=== PATIENT | female | born 1950 | race Caucasian/White ===

== ENCOUNTER 2025-01-29 11:13 | Outpatient (CLI) | payer MEDICARE, SELFPAY ==
--- NOTE | 2025-01-29 11:45 | ECG_ITS ---
Test Date: 2025-01-29 11:54:28 Measurements Intervals [place] Rate: 65 P: -14 WA: 151 QRS: 6 QRSD: 94 T: -2 QT: 397 QTc: 415 Interpretive Statements SINUS RHYTHM WITH SINUS ARRHYTHMIA MINIMAL Q WAVES- HIGH LATERAL LEADS NONSPECIFIC ST & T-WAVE ABNORMALITY- ANTEROLAT/INF LEADS BORDERLINE ECG No previous ECG available for comparison Electronically Signed On 01-29-2025 11:59:33 CDT by Marcus Jaramillo D.O.
--- OUTSIDE RECORDS SUMMARY | 2025-01-29 11:47 | XMS_ITS | Clinical Summary ---
Author Organization [facility] Address [address] [place] [address] Care Team Providers Care Manager Regulatory Name Role Phone Unavailable Primary Care Provider Unavailabl e Source Comments [facility],non-owned Affiliates and Associated Physician Practices is amultiple site organization consisting of ambulatory clinics and hospital sitesin [place], [place], [place] and [place]. This disclosure is being madepursuant to the Care Everywhere program and may not contain all information available regarding this patient. Last updated 18.[facility] [employer] Allergies Active Allergy Reactions Criticality Noted Date Comments Amoxicillin-Pot Clavulanate Rash Medium 08/30/19 17 Iodine Urticaria Medium 08/31/2011 Iv contrast Prednisone Other Medium 12/09/2019 makes her really on edge Medications * Be aware that medications may not be up to date on this document. Alwaysverify current medications with the patient. levothyroxine (Synthroid) 88 MCG tablet Take 1 (one) tablet by mouth once daily 07/27/2023 Active magnesium 500 MG tablet Take 1 (one) tablet by mouth at bedtime Active meloxicam (Mobic) 15 MG tablet TAKE 1 TABLET (15 MG TOTAL) BY MOUTH DAILY. 08/13/2023 Active rosuvastatin (Crestor) 10 MG tablet Take 1 (one) tablet by mouth 07/21/2023 Active sulfaSALAzine (Azulfidine) 500 MG tablet Take 2 (two) tablets by mouth once daily 06/25/2023 Active valsartan (Diovan) 320 MG tablet Take 1 (one) tablet by mouth once daily 07/03/2023 Active Active Problems No known active problems Social History Tobacco Use Types Packs/Day Years Used Date Smoking Tobacco: Never Smokeless Tobacco: Never Alcohol Use Standard Drinks/Week Comments Yes 1 (1 standard drink = 0.6 oz pur e alcohol) Comments Unknown Sex and Gender Information Value Date Recorded Sex Assigned at Not on file Legal Sex Female 9:19 AM [employer] Gender Identity Not on file Sexual Orientation Not on file Last Filed Vital Signs Vital Sign Reading Time Taken Comments Blood Pressure - - Pulse - - Temperature - - Respiratory Rate - - Oxygen Saturation - - Inhaled Oxygen Concentration - - Weight 108.9 kg (240 lb) 08/30/2023 1:58 PM CDT Height 174 cm (5' 8.5) 08/30/2023 1:58 PM CDT Body Mass Index 35.96 08/30/2023 1:58 PM CDT Plan of Treatment Health Maintenance Due Date Last Done Comments COLOGUARD (AGES 45-75) - COL ON CA SCREENING 1951 COLON MONITORING 1951 COLONOSCOPY - COLON CA SCREENING 1951 CT COLONOGRAPHY - COLON CA SCREENING 1950 Colorectal Cancer Screening 1950 FIT - COLON CA SCREENING 1951 FLEX SIG - COLON CA SCREENING 1950 MEDICARE AWV 12 MONTHS 1950 HEPATITIS C SCREENING 03/31/1969 DTAP/TDAP/TD VACCINES (1 - Tdap) 1970 PNEUMOCOCCAL VACCINE 50+ (1 of 1 - PCV) 2001 ZOSTER VACCINE (1 of 2) 2001 DEPRESSION SCREENING 04/30/2024 COVID-19 VACCINE (3 - 2024-2 6 season) 2024 06/30/2020, 06/02/2020 INFLUENZA VACCINE (#1) 2024 9, 04/07/2013, 03/25/2013 MAMMOGRAM 07/22/2025 07/23/2023, 07/17/2022 Respiratory Syncytial Virus (RSV) Vaccine Pt: or over 60 yrs (1 - 1-dose 75+ series) 2026 BONE DENSITY TESTING Completed 01/28/2020 HEPATITIS B VACCINE Aged Out No longe r eligible based on patient's age to complete this topic HIB VACCINE Aged Out No longer eligi ble based on patient's age to complete this topic HPV VACCINE Aged Out No longer eligi ble based on patient's age to complete this topic MENINGOCOCCAL (Group B) VACCINE SHARED DECISION-MAKING Aged Out No longer eligible based on patient's age to complete this topic MENINGOCOCCAL GROUPS A/C/Y/W VACCINE Aged Out No longer eligible b ased on patient's age to complete this topic Insurance MEDICARE T[place]
[2025-01-29 12:20] LABS: Hematocrit 41.2 % (37.0-47.0); Hemoglobin 13.5 g/dL (12.0-15.0); Immature Granulocyte Percent A 1.1 % (0-0.5); Lymphocytes Absolute Auto 1.90 K/mm3 (0.9-3.2); Mean Corpuscular HGB Conc 32.8 g/dl (32-36); Mean Corpuscular Hemoglobin 32.1 pg (26-34); Mean Corpuscular Volume 98.1 fl (80-100); Nucleated Red Blood Cells Absolute Auto 0.000 K/mm3 (0.0-0.012); Nucleated Red Blood Cells Perc 0.0 % (0.0-0.2); Platelet Count Result 209 k/mm3 (150-375); Red Blood Count 4.20 M/mm3 (4.2-5.4); White Blood Count 10.3 K/mm3 (4.5-10.0)
[2025-01-29 12:27] LABS: Add Urine Microscopic? YES; Appearance Urine Clear (Clear); Glucose Urine UA Negative (Negative); Leukocyte Esterase Ur Trace LEU/UL (Negative); Nitrate Urine Negative (Negative); Non Pathogenic Casts 0-2; Specific Grav Ur 1.010 (1.001-1.035)
[2025-01-29 12:44] LABS: Anion Gap 9 mmol/L (4-12); Blood Urea Nitrogen 20 mg/dL (7-17); Calcium 9.8 mg/dL (8.4-10.2); Carbon Dioxide 26 mmol/L (22-30); Chloride 101 mmol/L (98-107); Estimated Glomerular Filt Rate > 60; Glucose 188 mg/dL (65-110); Potassium 4.0 mmol/L (3.4-5.0); Sodium 136 mmol/L (137-145)
[2025-01-29 12:54] LABS: Hemoglobin A1C 7.2 % (<5.7)
== END 2025-01-29 11:14 | disposition home or self-care (01) ==
PROVIDERS: PCP Family Medicine Sports Medicine; Visit Provider Nurse Practitioner Family
DX: R94.31 Abnormal electrocardiogram [ECG] [EKG] (principal); R53.83 Other fatigue; E11.9 Type 2 diabetes mellitus without complications; I10 Essential (primary) hypertension
CPT/HCPCS: 36415; 80048; 81001; 83036; 85025; 93005

== ENCOUNTER 2025-04-27 09:36 | Outpatient (CLI) | payer MEDICARE, SELFPAY ==
--- OUTSIDE RECORDS SUMMARY | 2025-04-27 10:01 | XMS_ITS | Clinical Summary ---
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 Active Multiple Vitamins-Minerals (SENIOR MULTIVITAMIN PLUS OR) Take 1 tablet by mouth daily. Active rosuvastatin (CRESTOR) 10 MG tabletIndications:Mi xed hyperlipidemia Take 1 tablet (10 mg total) by mouth nightly at bedtime. 90 tablet 3 5 Active levothyroxine (SYNTHROID) 88 MCG tabletIndications:Ac quired hypothyroidism Take 1 tablet (88 mcg total) by mouth daily. OFFICE VISIT DUE IN JULY 2024. 90 tablet 3 5 Active amLODIPine (NORVASC) 2.5 MG tabletIndications:Es sential hypertension Take 1 tablet (2.5 mg total) by mouth daily. 30 tablet 5 5 Active valsartan (DIOVAN) 320 MG tabletIndications:Hy pertension, essential TAKE 1 TABLET BY MOUTH EVERY DAY 90 tablet 1 5 Active Bexagliflozin (BRENZAVVY) 20 MG TabIndications:Type 2 diabetes mellitus with other diabetic arthropathy, without long-term current use of insulin ([facility]CC) Take 20 mg by mouth daily. 90 tablet 1 5 Active meloxicam (MOBIC) 15 MG tabletIndications:Ri ght leg pain TAKE 1 TABLET (15 MG TOTAL) BY MOUTH DAILY. 90 tablet 1 5 Active sulfaSALAzine (AZULFIDINE) 500 MG tabletIndications:Cr ohn's disease with complication, unspecified gastrointestinal tract location ([facility]) TAKE 2 TABLETS BY MOUTH EVERY DAY 180 tablet 5 Active Active Problems Problem Noted Date Diagnosed Date Degenerative joint disease, right, ankle 025 Right knee pain 04/20/2025 Stiffness of both knees 02/20/2025 Chronic pain of right ankle 02/20/2025 Abnormal electrocardiogram (ECG) (EKG) Crohn's disease with complic ation, unspecified gastrointestinal tract location 08/19/2024 Mural thickening of sigmoid colon 01/17/2024 Morbid (severe) obesity due to excess calories 0 07/17/2023 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 2014 yet off lipid rx though #'s not at goal, per choice Date Onset: prior to 2009 Postoperative hypothyroidism 09/13/2013 Overview (07/25/2018): Overview: POSTSURGICAL HYPOTHYROID Hematuria 02/24/2013 Overview (07/25/2018): Date Onset: 02/24/2013 Generalized osteoarthrosis, involving multiple s ites 11/14/2012 Overview (07/25/2018): Date Onset: 11/14/2012 Hypothyroidism 11/14/2012 Obesity 03/25/2012 Ulcerative colitis 03/25/2012 Hypomagnesemia 09/04/2011 Overview (07/25/2018): Date Onset: 09/04/2011 Calculus of kidney 09/01/2011 Overview (07/25/2018): Date Onset: 08 Type 2 diabetes mellitus 09/01/2011 Overview (03/10/2021): Date Onset: 11/14/2012 Overview: DMII WO CMP UNCNTRLD DMII WO CMP UNCNTRLD HTN (hypertension) 09/01/2011 Overview (07/25/2018): Note: 03/04/2018 Uncontrolled 03/04/2018 Uncontrolled Date Onset: 03/04/2018 ARCEO (nonalcoholic steatohepatitis) 09/01/2011 Resolved Problems Problem Noted Date Diagnosed Date Resolved Date Recurrent acute serous otiti s media of both ears 02/20/2025 04/20/2025 Gas bloat syndrome 02/20/2025 Diarrhea, unspecified type 01/17/2024 1 06/21/2024 Metatarsalgia of both feet 07/25/2018 1 06/21/2024 Insomnia 03/04/2018 04/20/2025 Overview (07/25/2018): Date Onset: 03/04/2018 Bunion of great toe of left foot 05/08/2017 12/08/2021 Overview (07/25/2018): Date Onset: 05/08/2017 Encounters Date Type Department Care Team Description 04/24/[address] [place] [address] Dalia Lovell, Record Request 04/20/2025 11:00 AM ASSISTANT TO THE PRESIDENT Office Visit [address] [place] [phone] Dalia Lovell DO Surgical Clearance (Pre op right knee surgery./- ANB//Pt is in room 11. /) 04/20/2025 Travel 03/19/2025 8:00 AM ASSISTANT TO THE PRESIDENT - 03/19/2025 11:59 PM ASSISTANT TO THE PRESIDENT Hospital Encounter [facility] Cardiopulmonary Services [address] [place] [phone] Richard Linton MD Discharge Disposition: Home or Self Care (Routine Discharge) 03/19/2025 8:00 AM ASSISTANT TO THE PRESIDENT - 03/19/2025 11:59 PM ASSISTANT TO THE PRESIDENT Hospital Encounter [facility] Nuclear Medicine [address] [place] [phone] Richard Linton MD Discharge Disposition: Home or Self Care (Routine Discharge) 03/19/2025 Results Follow-Up [facility]-[address] [address] Jossy Powell RN NM PHARM NUC STRESS TEST 1 DAY W TRACING 03/19/2025 Travel 03/12/2025 2:30 PM ASSISTANT TO THE PRESIDENT Office Visit [facility] [address] [phone] Richard Linton MD Consult; Surgical Clearance 03/12/2025 Travel 02/20/2025 7:40 AM CDT Office Visit [address] [place] [address] Dalia Lovell, Lab Results (Pt is here to go over lab and tests results, Pt states she is doing well, she still has some dizziness in the mornings but does subside as the day goes on-KB) 02/20/[address] [place] [address] Dalia Lovell, Information 02/20/2025 Travel 02/16/2025 6:57 AM CDT - 02/16/2025 11:59 PM CDT Hospital Encounter [facility] Nuclear Medicine [address] [place] [address] Dalia Lovell, DO Discharge Disposition: Home or Self Care (Routine Discharge) 02/16/2025 Results Follow-Up [address] [place] [address] Dalia Lovell, NM HEPATOBILIARY SCAN W/GB EJECTION FRACTION 02/16/2025 Travel 02/11/[address] [place] [address] Dalia Lovell, Appointment Request 01/26/2025 1:00 PM CDT Office Visit [address] [place] [address] Dalia Lovell, Follow Up (Pt is here for a follow up on her left ear, Pt states her ear is still bothering her, feel like its full and has some pressure) 01/26/2025 Travel from Last 3 Months Immunizations Immunization Administration Dates Next Due Dtap (Generic) 10/14/2018,10/14/2018 FLUCELVAX (ccIIV3, TRIVALENT, 0.5mL) 03/25/2013 Flucelvax 6 Months+ (Prefill ed Syringe) 03/25/2013 Fluzone High Dose (IIV, triv alent, 0.5mL) 01/23/2020,02/07/2019 Fluzone High Dose - >Age 65 (Prefilled Syringe) 04/28/2021,01/23/2020,02/07/2019 Influenza (Generic) 04/07/2013 Influenza Adult (Generic) 02/07/2019,02/2019,03/25/2013,2012 MODERNA COVID-19 (12+) MRNA, LNP-S, PF, 100 MCG/ 0.5 ML DOSE 06/30/2020,06/02/2020 Pneumococcal (Pneumovax 23) 09/13/2019, 0 Pneumococcal (Prevnar 13) 09/18/2018 Pneumovax 23 25 Mcg/0.5Ml Ij Inj 09/13/2019 Rubella (Generic) 12/01/1987 Shingrix 10/14/2018,08/08/2018 Td 06/19/2006 Td (TDVAX) 06/19/2006 Tdap (Generic) 10/14/2018,10/14/2018 Zoster (Zostavax) [address] Unt/0.65Ml 03/25/2013 Family History Medical History Relation Comments Arthritis Father Hypertension Father Stroke Father Cancer Mother Colon Cancer Mother Breast Cancer Neg Hx Relation Status Comments Father Mother Social History Tobacco Use Types Packs/Day Years Used Date Smoking Tobacco: Former Cigarettes 0.3 4 0 12/09/1975 - 12/09/1979 Smokeless Tobacco: Never Tobacco Cessation:Counseling Given: No Alcohol Use Standard Drinks/Week Comments Yes 0 (1 standard drink = 0.6 oz pur e alcohol) rare AUDIT-C Answer Date Recorded Frequency of Alcohol Consumption Never 07/25/2018 Average Number of Drinks Not on file 019 Frequency of Binge Drinking Not on file 06/29 PHQ-2 Answer Date Recorded Patient Health Questionnaire-2 Score 0 08/19/2024 Comments No Sex and Gender Information Value Date Recorded Sex Assigned at Female 01/23/2020 10:20 AM CDT Legal Sex Female 6:01 PM CDT Gender Identity Female 01/23/2020 10:20 AM CDT Sexual Orientation Straight 01/23/2020 10 :20 AM CDT Last Filed Vital Signs Vital Sign Reading Time Taken Comments Blood Pressure 138/78 04/20/2025 10:58 AM ASSISTANT TO THE PRESIDENT Pulse 78 04/20/2025 10:58 AM ASSISTANT TO THE PRESIDENT Temperature 36.7 C (98.1 F) 04/20/2025 10:58 AM ASSISTANT TO THE PRESIDENT Respiratory Rate 16 04/20/2025 10:58 AM ASSISTANT TO THE PRESIDENT Oxygen Saturation 98% 04/20/2025 10:58 AM ASSISTANT TO THE PRESIDENT Inhaled Oxygen Concentration - - Weight 107.5 kg (237 lb) 04/20/2025 10:58 AM ASSISTANT TO THE PRESIDENT Height 174 cm (5' 8.5) 04/20/2025 10:58 AM ASSISTANT TO THE PRESIDENT Body Mass Index 35.51 04/20/2025 10:58 AM ASSISTANT TO THE PRESIDENT Plan of Treatment Health Maintenance Due Date Last Done Comments Hepatitis A Vaccines (1 of 2 - Risk 2-dose series) 1970 RSV Immunization or 60+ Years (1 - Risk 60-74 years 1-dose series) 2011 Hemoglobin A1C 02/18/2025 08/19/2024, 06/28, 02/01/2023, Additional history exists Mammogram Screening 07/22/2025 07/23/2023, 07/17/2022, 02/08/2021, Additional history exists Kidney Health Evaluation 08/19/2025 08/19/2024 Lipid Panel 08/19/2025 08/19/2024, 06/28, 02/01/2023, Additional history exists COVID-19 Vaccine ( season) 2026 11/16/2021, 04/28/2021, 06/30/2020, Additional history exists Postponed from 12/29/2024 (Patient Refused) Influenza Adult (#1) 2026 04/28/2021, 01/23/2020, 01/23/2020, Additional history exists Postponed from 01/28/2025 (Patient Refused) Diabetes: Retinopathy Eye Exam 01/08/2027 01/08/2025 Annual Medicare Wellness Visit 07/22/2028 Postponed from 2016 (Elected Alternative Screening/Test) DTaP, Tdap and Td Vaccines (5 - Td or Tdap) 10/14/2028 10/14/2018, 10/14/2018, 10/14/2018, Additional history exists Colorectal Cancer Screening Colonoscopy (10 Years) 02/10/2034 02/11/2024, 02/11/2024, 02/11/2024, Additional history exists Zoster Vaccines Completed 10/14/2018, 07/29, 03/25/2013 Hepatitis C Completed 01/13/2019 Pneumococcal Vaccine: 50+ Years Completed 09/13/2019, 09/13/2019, 09/13/2019, Additional history exists Dexa Scan (General) Completed 01/28/2020 PHQ-2 (Physician [place]) Completed 08/19/2024 Meningococcal B Vaccine Aged Out No l onger eligible based on patient's age to complete this topic Meningococcal Vaccine Aged Out No lilia jannette eligible based on patient's age to complete this topic RSV Immunizations Under 20 Months Aged Out No longer eligible b ased on patient's age to complete this topic Procedures Procedure Name Priority Date/Time Associated Diagnosis Comments NM PHARM NUC STRESS TEST 1DAY W TRACING Routine 03/19/2025 10:45 AM ASSISTANT TO THE PRESIDENT Pre-operative clearance Abnormal EKG CARDIOLOGY STRESS TEST ONLY, EXERCISE Routine 03/19/2025 8:40 AM ASSISTANT TO THE PRESIDENT Pre-operative clearance Abnormal EKG ELECTROCARDIOGRAM (NON MIDMARK ACQUIRED) Routine 03/12/2025 2:28 PM ASSISTANT TO THE PRESIDENT Pre-operative clearance Abnormal EKG NM HEPATOBILIARY SCAN W/GB EJECTION FRACTION Routine 02/16/2025 9:37 AM CDT Gas bloat syndrome DIABETIC RETINOPATHY EXAM (NEGATIVE)(SCAN ORDER) Routine 01/08/2025 LIPID PANEL Routine 08/19/2024 8:55 AM CDT Crohn's disease with complication, unspecified gastrointestinal tract location ([facility]/HCC) Class 2 severe obesity due to excess calories with serious comorbidity and body mass index (BMI) of 36.0 to 36.9 in adult Type 2 diabetes mellitus with other diabetic arthropathy, without long-term current use of insulin ([facility]) HEMOGLOBIN, GLYCOSYLATED Routine 08/19/2024 8:55 AM CDT Crohn's disease with complication, unspecified gastrointestinal tract location ([facility]/HCC) Class 2 severe obesity due to excess calories with serious comorbidity and body mass index (BMI) of 36.0 to 36.9 in adult Type 2 diabetes mellitus with other diabetic arthropathy, without long-term current use of insulin ([facility] H[facility]/HCC) COLONOSCOPY Routine 02/11/2024 9:53 AM CDT MG SCREENING W DORIE JOJO DIGI Routine 07/23/2023 9:36 AM CDT Visit for screening mammogram BONE DENSITY/DEXA 01/28/2020 9:3 1 AM CDT HEPATITIS C RNA W/ REFLX GENOTYPE Routine 01/13/2019 10:33 AM CDT from Last 3 Months or Most Recently Relevant to Health Maintenance Results * NM PHARM NUC STRESS TEST 1 DAY W TRACING (03/19/2025 10:45 AM ASSISTANT TO THE PRESIDENT) Anatomical Region Laterality Modality Cardiac Nuclear Medicine 03/19/2025 3:06 PM ASSISTANT TO THE PRESIDENT Impressions 03/19/2025 3:11 PM ASSISTANT TO THE PRESIDENT IMPRESSION: 1. No stress-induced reversible perfusion abnormality to suggest ischemia. 2. Tiny fixed defect of mild severity along the apical septal wall may be secondary to attenuation artifact or a tiny infarct. 3. Normal left ventricular size and systolic function. Ordered By: RICHARD LINTON Interpreted By: Megan Rausch MD, 03/19/2025 3:06 PM Narrative 03/19/2025 3:11 PM ASS[place] [address] EXAMINATION: MYOCARDIAL IMAGING (REST AND PHARMACOLOGIC-STRESS/SPECT) DATE OF STUDY: 03/19/2025 RADIOPHARMACEUTICAL: 11.2 mCi, 33.1 mCi Tc-99m sestamibi i.v. HISTORY: Hypertension, hyperlipidemia, diabetes, smoking history, abnormal EKG. Preoperative evaluation. Evaluate for ischemia and/or myocardial infarction. The patient's body mass index (BMI) was 35.51. FINDINGS: Standard myocardial perfusion SPECT images were obtained after resting tracer injection. Subsequently, an intravenous infusion of Regadenoson (0.4 mg of A2A adenosine receptor agonist Regadenoson (Lexiscan), infused intravenously over approximately 10 seconds, followed approximately after another 20 seconds by tracer infusion) was performed without low level exercise on the date indicated above. The stress test and EKG were performed under the supervision of Dr. Linton. Standard myocardial perfusion SPECT images were obtained after tracer injection at the peak effect of the drug. Images were obtained in a supine position. COMPARISON: None The projection images were reviewed for image quality, and reveal significant breast and soft tissue attenuation with mild motion.. There is a tiny fixed defect of mild severity along the apical septal wall. No significant stress-induced reversible perfusion abnormality to suggest ischemia. Gated post-stress images demonstrate normal left ventricular volume, normal left ventricular wall motion and? normal ejection fraction of 66 % (normal >45%). Procedure Note Megan Rausch MD - 03/19/2025 [facility] [address] [place] [address] EXAMINATION: MYOCARDIAL IMAGING (REST AND PHARMACOLOGIC-STRESS/SPECT) DATE OF STUDY: 03/19/2025 RADIOPHARMACEUTICAL: 11.2 mCi, 33.1 mCi Tc-99m sestamibi i.v. HISTORY: Hypertension, hyperlipidemia, diabetes, smoking history, abnormalEKG. Preoperative evaluation. Evaluate for ischemia and/or myocardialinfarction. The patient's body mass index (BMI) was 35.51. FINDINGS: Standard myocardial perfusion SPECT images were obtained afterresting tracer injection. Subsequently, an intravenous infusion ofRegadenoson (0.4 mg of A2A adenosine receptor agonist Regadenoson(Lexiscan), infused intravenously over approximately 10 seconds, followedapproximately after another 20 seconds by tracer infusion) was performedwithout low level exercise on the date indicated above. The stress testand EKG were performed under the supervision of Dr. Linton. Standard myocardial perfusion SPECT images were obtained after tracerinjection at the peak effect of the drug. Images were obtained in asupine position. COMPARISON: None The projection images were reviewed for image quality, and revealsignificant breast and soft tissue attenuation with mild motion.. There is a tiny fixed defect of mild severity along the apical septalwall. No significant stress-induced reversible perfusion abnormality tosuggest ischemia. Gated post-stress images demonstrate normal left ventricular volume,normal left ventricular wall motion and? normal ejection fraction of 66 %(normal >45%). IMPRESSION: 1. No stress-induced reversible perfusion abnormality to suggestischemia. 2. Tiny fixed defect of mild severity along the apical septal wall may besecondary to attenuation artifact or a tiny infarct. 3. Normal left ventricular size and systolic function. 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1950 Requested By: RICHARD LINTON Order Number: [id number] Reading MD: Richard Linton Measurements Intervals [place] Rate: 86 P: -1 IN: 167 QRS: 45 QRSD: 89 T: 16 QT: 351 QTc: 422 Interpretive Statements SINUS RHYTHM WITH OCCASIONAL VENTRICULAR PREMATURE COMPLEXES LOW QRS VOLTAGE IN PRECORDIAL LEADS NONSPECIFIC T-WAVE ABNORMALITY STANT TO THE PRESIDENT Procedure Note Richard Linton MD - 03/14/2025 [facility] Test Date: 2025-03-12 Pat Name: SHEEBA ARNOLD Department: 108 Room: 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1950 Requested By: RICHARD LINTON Order Number: [id number] Reading MD: Richard Linton Measurements Intervals [place] Rate: 86 P: -1 IN: 167 QRS: 45 QRSD: 89 T: 16 QT: 351 QTc: 422 Interpretive Statements SINUS RHYTHM WITH OCCASIONAL VENTRICULAR PREMATURE COMPLEXES LOW QRS VOLTAGE IN PRECORDIAL LEADS NONSPECIFIC T-WAVE ABNORMALITY STANT TO THE PRESIDENT us Richard Linton MD PROCEDURES-ORDERABLE NO CHARGE F inal Result [facility] * NM HEPATOBILIARY SCAN W/GB EJECTION FRACTION (02/16/2025 9:37 AM CDT) Anatomical Region Laterality Modality Abdomen Computed Tomogra phy 02/16/2025 10:3 1 AM CDT Impressions 02/16/2025 12:58 PM CDT IMPRESSION: 1. Normal contractile response of the gallbladder to sincalide infusion. Normal hepatobiliary scintigraphy. Dictated By: Cory Lowry MD on 02/16/2025 10:31 AM The attending radiologist has reviewed the image(s) and agrees with the content of this report. Ordered By: DALIA LOVELL Interpreted By: Cory Lowry MD, 02/16/2025 10:31 AM Narrative 02/16/2025 12:58 PM CDT [address] [place] [address] EXAMINATION: HEPATOBILIARY SCINTIGRAPHY (WITH GALLBLADDER EJECTION FRACTION) DATE OF STUDY: 02/16/2025 6:57 AM RADIOPHARMACEUTICAL: 6.0 mCi Tc-99m mebrofenin i.v. and 2.2 mcg sincalide i.v. HISTORY: Gas bloat syndrome. Diarrhea. Crohn's disease. ARCEO. The most recently obtained serum total bilirubin was 0.4 mg/dL on 08/19/2024. Prior nuclear medicine studies used for comparison: none Other radiographic comparisons: CT abdomen and pelvis 11/27/2023 FINDINGS: Following intravenous administration of tracer, sequential abdominal images were obtained. Unfortunately, during the acquisition there was a technical error and the camera lost the images acquired through 47 minutes. The mental health technician reported visualization of gallbladder filling at this time point, but images are not available for review. When the camera again became functional at 90 minutes there is visualization of the gallbladder and normal excretion of the tracer into the duodenum. In order to evaluate the contractile response of the gallbladder in response to cholecystokinin, sincalide (0.02 mcg /kg) was administered by slow intravenous infusion over 30 minutes, starting approximately 90 minutes after the administration of the radiopharmaceutical. Sequential imaging was continued for 60 minutes after the start of the sincalide infusion. These images demonstrate good contraction of the gallbladder. The calculated gallbladder ejection fraction is greater than 80% (normal greater than 35%). The patient reported no symptoms during Sincalide administration. Procedure Note Daryl Pereira MD - 02/16/[address] [place] [address] EXAMINATION: HEPATOBILIARY SCINTIGRAPHY (WITH GALLBLADDER EJECTIONFRACTION) DATE OF STUDY: 02/16/2025 6:57 AM RADIOPHARMACEUTICAL: 6.0 mCi Tc-99m mebrofenin i.v. and 2.2 mcg sincalidei.v. HISTORY: Gas bloat syndrome. Diarrhea. Crohn's disease. ARCEO. The mostrecently obtained serum total bilirubin was 0.4 mg/dL on 08/19/2024. Prior nuclear medicine studies used for comparison: none Other radiographic comparisons: CT abdomen and pelvis 11/27/2023 FINDINGS: Following intravenous administration of tracer, sequentialabdominal images were obtained. Unfortunately, during the acquisitionthere was a technical error and the camera lost the images acquiredthrough 47 minutes. The mental health technician reported visualization of gallbladderfilling at this time point, but images are not available for review. Whenthe camera again became functional at 90 minutes there is visualization ofthe gallbladder and normal excretion of the tracer into the duodenum. In order to evaluate the contractile response of the gallbladder inresponse to cholecystokinin, sincalide (0.02 mcg /kg) was administered byslow intravenous infusion over 30 minutes, starting approximately 90minutes after the administration of the radiopharmaceutical. Sequentialimaging was continued for 60 minutes after the start of the sincalideinfusion. These images demonstrate good contraction of the gallbladder.The calculated gallbladder ejection fraction is greater than 80% (normalgreater than 35%). The patient reported no symptoms during Sincalide administration. IMPRESSION: 1. Normal contractile response of the gallbladder to sincalide infusion.Normal hepatobiliary scintigraphy. Dictated By: Cory Lowry MD on 02/16/2025 10:31 AM The attending radiologist has reviewed the image(s) and agrees with thecontent of this report. Ordered By: DALIA LOVELL Interpreted By: Cory Lowry MD, 02/16/2025 10:31 AM us Dalia Lovell DO [facility] Final Result * DIABETIC RETINOPATHY EXAM (NEGATIVE) (01/08/2025) us [facility] Scanned SCANNING Final Resu lt Performing Organization Address City/[facility]/ZIP Co de Phone Number [facility] ON[facility] * (ABNORMAL) HEMOGLOBIN, GLYCOSYLATED (08/19/2024 8:55 AM CDT) HGB A1C 7.0(H) <5.7 % 08/19/2024 4:04 PM CDT [facility] Comment: ADA GUIDELINES 2010 5.7 TO 6.4% INCREASED RISK OF DIABETES > OR = 6.5% CONSISTENT WITH DIABETES ESTIMATED AVG GLUCOSE 154 mg/dL 08/19/2024 4:04 PM CDT [facility] 08/19/2024 8:55 AM CDT us Dalia Lovell DO LABORATORY Final Result Performing Organization Address City/[facility]/ZIP Co de Phone Number [facility] [address] [place] [address], [place] [phone] * LIPID PANEL (08/19/2024 8:55 AM CDT) CHOLESTEROL 161 <200 MG/DL 08/19/2024 3:41 PM CDT [facility] TRIGLYCERIDES 108 <150 MG/DL 08/19/2024 3:41 PM CDT [facility] HDL 64 >40.0 MG/DL 08/19/2024 3:41 PM CDT [facility] LDL (CALCULATED) 75 <100 MG/DL 08/20/19 3:41 PM CDT [facility] NON HDL CHOLESTEROL 97 <130 MG/DL 08/19 3:41 PM CDT [facility] CHOL/HDL RATIO 2.5 0.0 - 4.5 08/19/2024 3:41 PM CDT [facility] VLDL CALCULATION 22 5 - 55 MG/DL 08/19/2024 3:41 PM CDT [facility] LIPID INTERPRETATION 08/19/2024 3:41 PM CDT [facility] Comment: [facility] CONCENSUS REPORT RECOMMENDATIONS: ADULT CHILD LOW RISK: CHOLESTEROL <200 <170 TRIGLYCERIDE <150 --- HDL >=60 --- LDL <100 <110 BORDERLINE: CHOLESTEROL 200-239 170-199 TRIGLYCERIDE 150-199 --- HDL 40-59 --- LDL 100-159 110-129 HIGH RISK: CHOLESTEROL >=240 >=200 TRIGLYCERIDE >=200 --- HDL <40 --- LDL >=160 >=130 08/19/2024 8:55 AM CDT us Dalia Lovell DO LABORATORY Final Result [facility] [address] [place] [address], [place] [phone] * MG SCREENING W DORIE JOJO DIGI (07/23/2023 9:36 AM CDT) Anatomical Region Laterality Modality Breast Bilateral Computed Tomogra phy, Other 07/23/2023 12:2 4 PM CDT Narrative 07/23/2023 12:52 PM CDT EXAMINATION: Digital bilateral screening mammogram with 3-D tomosynthesis EXAM DATE/TIME: 07/23/2023 9:19 AM REASON FOR EXAM: YEARLY EXAM 3 right-sided and one left-sided biopsies which were benign. COMPARISON: 02/08/2021. 07/17/2022. Technique: Digital screening mammography of both breasts was performed in addition to 3-D Tomosynthesis technique. This study was read with the assistance of a computer-aided detection system. Tissue density: There are scattered areas of fibroglandular density. Findings: There is no new focal asymmetry, dominant mass lesion, area of skin thickening, or cluster of suspicious appearing calcifications in either breast to suggest malignancy. ===== IMPRESSION: ===== 1. Stable mammographic appearance with no new findings to suggest malignancy in either breast. Assessment: ACR BI-RADS 2 - BENIGN FINDING(S) Recommendation: 1:Routine Screening Bilateral Comments: Ordered By: DALIA LOVELL Interpreted By: Sunny Talley, 07/23/2023 12:24 PM us Dalia Lovell DO MAMMO Final Result * COLONOSCOPY GENERIC (02/03/2020) 02/03/2020 Narrative 02/03/2020 Ordered by an unspecified provider. us Documents Scanned SCANNING Final Result * BONE DENSITY/DEXA (01/28/2020 9:31 AM CDT) Anatomical Region Laterality Modality Bone Bone Density 01/28/2020 9:31 AM CDT Narrative 01/28/2020 9:31 AM CDT [facility] ---------NAME--------- NUMBER SEX AGE ADMIT DISC. XRAY# F/C TYPE CATALINA RADERE Vannessa [id number] F 69 01/28/20 01/28/20 [id number] MB O/P DATE OF : 1950 M/R# [id number] PH#: [phone] XR BONE DENSITY-DEXA SPINE [id number] COMPLETED:01/28/20 9:31 AJ [id number] {BD DX: MENOPAUSAL STATE PHYSICIAN: CYRIL KWAN R A D I O L O G Y R E P O R T IMAGING STUDIES: XR BONE DENSITY-DEXA SPINE DATE: 01/28/2020 9:30 AM CLINICAL HISTORY: BD DX: MENOPAUSAL STATE. 69-year-old female on calcium therapy. Loss of 1 inch of height. Menopause between age 47 and 51. Thyroidectomy. FINDINGS: LUMBAR SPINE L2-L4: BMD: 1.375 g/sq cm T-SCORE: 1.5 WHO CLASSIFICATION: Normal young adult range FRACTURE RISK: Negligible LEFT FEMORAL NECK: BMD: 0.758 T-SCORE: -2.0 WHO CLASSIFICATION: Very osteopenic FRACTURE RISK: Low Recommendation. Continuation of calcium replacement therapy with repeat imaging in 2 years Interpreted By: Sunny Talley, 01/28/2020 11:38 AM Electronically Signed By: Randal TALLEY M.D. , BOARD CERTIFIED Date/Time: 01/28/20 11:39 Procedure Note Xiang Hyde MD - 01/28/2020 [facility] ---------NAME--------- NUMBER SEX AGE ADMIT DISC. XRAY# F/CTYPE CATALINA Hurd [id number] F 69 01/28/20 01/28/20 [id number] MBO/P DATE OF : 1950 M/R# [id number] #: [id number] XR BONE DENSITY-DEXA SPINE [id number] COMPLETED:01/28/20 9:31 [id number] {BD DX: MENOPAUSAL STATE PHYSICIAN: CYRIL KWAN R A D I O L O G Y R E P O R T IMAGING STUDIES: XR BONE DENSITY-DEXA SPINE DATE: 01/28/2020 9:30 AM CLINICAL HISTORY: BD DX: MENOPAUSAL STATE. 69-year-old femaleon calcium therapy. Loss of 1 inch of height. Menopause between age 47 and51. Thyroidectomy. FINDINGS: LUMBAR SPINE L2-L4: BMD: 1.375 g/sq cm T-SCORE: 1.5 WHO CLASSIFICATION: Normal young adult range FRACTURE RISK: Negligible LEFT FEMORAL NECK: BMD: 0.758 T-SCORE: -2.0 WHO CLASSIFICATION: Very osteopenic FRACTURE RISK: Low Recommendation. Continuation of calcium replacement therapy with repeatimaging in 2 years Interpreted By: Sunny Talley, 01/28/2020 11:38 AM Electronically Signed By: Randal TALLEY M.D. , BOARD CERTIFIED Date/Time: 01/28/20 11:39 Dalia Lovell DO DEXA Final Result * HEPATITIS C RNA W/ REFLX GENOTYPE (01/13/2019 10:33 AM CDT) HEPATITIS C AB NON-REACTIVE NON-REACT [facility] SIGNAL TO CUTOFF 0.07 <1.00 [facility] Comment: HCV antibody was non-reactive. There is no laboratory evidence of HCV infection. In most cases, no further action is required. However, if recent HCV exposure is suspected, a test for HCV RNA (test code 35813) is suggested. For additional information please refer to http://education.[employer]faq/HJO07p9 (This link is being provided for informational/ educational purposes only.) ROSANNA LACKEY DO,MPH THIS TEST WAS PERFORMED AT [facility] [address] [place] [address] COMMENT Not required [facility] 01/13/2019 10:3 3 AM CDT 01/13/2019 10:33 AM CDT Dalia Lovell DO LABORATORY Final Result [facility] [address] [place] [address] from Last 3 Months or Most Recently Relevant to Health Maintenance Insurance MEDICARE FOR[facility]LY [facility] Advance Directives Documents on File Type Date Recorded 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
--- OUTSIDE RECORDS SUMMARY | 2025-04-27 10:01 | XMS_ITS | Encounter Summary ---
Author Organization [facility] Address [facility] [place] [address] Care Team Providers Care Car Supplier Name Role Phone Dalia Lovell DO Primary Care Provider [phone] Encounter Details Date Type Department Care Team (Late st Contact Info) Description 10/11/2020 MyChart Message Enc [address] [place] [address] Dalia Lovell DO [facility] [address] [place], [place] [id number] RE: Question Social History Tobacco Use Types Packs/Day Years Used Date Smoking Tobacco: Former Cigarettes 0.3 4 0 12/09/1975 - 12/09/1979 Smokeless Tobacco: Never Alcohol Use Standard Drinks/Week Comments Yes 0 (1 standard drink = 0.6 oz pur e alcohol) rare AUDIT-C Answer Date Recorded Frequency of Alcohol Consumption Never 07/25/2018 Average Number of Drinks Not on file 019 Frequency of Binge Drinking Not on file 06/29 Comments No Sex and Gender Information Value Date Recorded Sex Assigned at Female 01/23/2020 10:20 AM CDT Legal Sex Female 6:01 PM CDT Gender Identity Female 01/23/2020 10:20 AM CDT Sexual Orientation Straight 01/23/2020 10 :20 AM CDT documented as of this encounter Progress Notes * Dalia Lovell DO - 10/12/2020 12:35 PM CDT Mri knee ? 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
--- OUTSIDE RECORDS SUMMARY | 2025-04-27 10:01 | XMS_ITS | Clinical Summary ---
Author Organization [facility] Address [address] [place] [address] Care Team Providers Care Solid Propellant Processor Name Role Phone Unavailable Primary Care Provider Unavailabl e Source Comments [facility],non-owned Affiliates and Associated Physician Practices is amultiple site organization consisting of ambulatory clinics and hospital sitesin [place], [place], [place] and [place]. This disclosure is being madepursuant to the Care Everywhere program and may not contain all information available regarding this patient. Last updated 18.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
--- OUTSIDE RECORDS SUMMARY | 2025-04-27 10:01 | XMS_ITS | Encounter Summary ---
Author Organization [facility] Address [facility] [place] [address] Care Team Providers Care Sample Display Preparer Name Role Phone Dalia Lovell DO Primary Care Provider [phone] Encounter Details Date Type Department Care Team (Late st Contact Info) Description 08/27/2018 Abstract [facility] - [address] [place], [place] [id number] Dalia Lovell DO [facility] [address] [place] [id number] Social History Tobacco Use Types Packs/Day Years Used Date Smoking Tobacco: Former Cigarettes Smokeless Tobacco: Never Alcohol Use Standard Drinks/Week Comments Yes 0 (1 standard drink = 0.6 oz pur e alcohol) rare AUDIT-C Answer Date Recorded Frequency of Alcohol Consumption Never 07/25/2018 Average Number of Drinks Not on file 019 Frequency of Binge Drinking Not on file 06/29 Comments Unknown Sex and Gender Information Value Date Recorded Sex Assigned at Female 01/23/2020 10:20 AM CDT Legal Sex Female 6:01 PM CDT Gender Identity Female 01/23/2020 10:20 AM CDT Sexual Orientation Straight 01/23/2020 10 :20 AM CDT documented as of this encounter Plan of Treatment Not on file documented as of this encounter Procedures Procedure Name Priority Date/Time Associated Diagnosis Comments HEALTH FAIR WITH LIPID Routine 07/04/2018 documented in this encounter Results * (ABNORMAL) HEALTH FAIR WITH LIPID (07/04/2018) WBC 4.9 RBC 4.2 HGB 12.8 HCT 41.2 MCV 98.1 MCH 30.5 MCHC 31.1 RDW 12.9 PLT 176 PLT EST. 12 ABS. NEUTROPHILS 2.15 ABS. LYMPHOCYTES 1.86 ABS. MONOCYTES 0.71 ABS. EOSINOPHILS 0.16 ABS. BASOPHILS 0.03 ABS. IMMATURE CELLS 0.02 NEUTROPHILS % 43.7 LYMPHOCYTES % 37.7 MONOCYTES % 14.4* EOSINOPHILS % 3.2 BASOPHILS % 0.6 IMMATURE GRANS % 0.40 GLUCOSE 125* mg/dL SODIUM S/P/B 140 POTASSIUM S/P/B 3.9 CHLORIDE S/P/B 102 CO2 27 BUN 16 CREATININE S/P/B 0.8 0.5 - 1.0 TOTAL PROTEIN S/P/B 7.2 CALCIUM S/P/B 9 ALBUMIN S/P/B 4.0(A) 3.5 - 5.0 ALKALINE PHOSPHATASE S/P/B 60 AST 21 ALT 27 TSH 6.303* VITAMIN D 25 HYDROXY S/P/B 41 CHOLESTEROL 220* TRIGLYCERIDES 128 HDL 54* LDL (CALCULATED) 140* CHOL/HDL RISK FACTOR 4 HGB A1C 6 07/04/2018 us Doc [facility] LABORATORY Final Result documented in this encounter Visit Diagnoses Not on filedocumented in this encounter Additional Health Concerns Infection Onset Date Last Indicated Resolved Time COVID-19 Rule Out 01/31/2020 01/31/2020 03/21/2021 4:13 PM RN ANESTHESIOLOGY documented as of this encounter Care Teams Sample Display Preparer Relationship Specialty Start Date End Date Dalia Lovell DO PCP - General FAMILY PRACTICE 07/22/18 documented as of this encounter
--- OUTSIDE RECORDS SUMMARY | 2025-04-27 10:01 | XMS_ITS | Encounter Summary ---
Author Organization [facility] Address [facility] [place] [address] Care Team Providers Care Cyber Security Manager Name Role Phone Dalia Lovell DO Primary Care Provider [phone] Encounter Details Date Type Department Care Team (Late st Contact Info) Description 03/20/2022 MyChart Message Enc [address] [place] [address] Dalia Lovell DO [facility] [address] [place] [id number] Tumeric Social History Tobacco Use Types Packs/Day Years [...] on file 06/29 PHQ-2 Answer Date Recorded PHQ-2 Score - If the patient scores above 3, please move on to questions 3-9 0 09/20/2021 Comments No Sex and Gender Information Value Date Recorded Sex Assigned at Female 01/23/2020 10:20 AM CDT Legal Sex Female 6:01 PM CDT Gender Identity Female 01/23/2020 10:20 AM CDT Sexual Orientation Straight 01/23/2020 10 :20 AM CDT documented as of this encounter Plan of Treatment Not on file documented as of this encounter Visit Diagnoses Not on filedocumented in this encounter Care Teams Cyber Security Manager Relationship Specialty Start Date End Date Dalia Lovell DO PCP - General FAMILY PRACTICE 07/22/18 documented as of this encounter
--- OUTSIDE RECORDS SUMMARY | 2025-04-27 10:01 | XMS_ITS | Encounter Summary ---
Author Organization [facility] Address [facility] [place] [address] Care Team Providers Care Sap Basis Administrator Name Role Phone Dalia Lovell DO Primary Care Provider [phone] Encounter Details Date Type Department Care Team (Late st Contact Info) Description 08/26/2018 Abstract [facility] - [address] [place], [place] [phone] Dalia Lovell DO [facility] [address] [place], [place] [phone] Social History Tobacco Use Types Packs/Day Years [...] 07/04/2018 documented in this encounter Results * HEALTH FAIR WITH LIPID (07/04/2018) WBC 4.9 [...] 1.0 TOTAL PROTEIN S/P/B 7.2 CALCIUM S/P/B 9.0 ALBUMIN S/P/B 4.0 3.5 - 5.0 ALKALINE PHOSPHATASE S/P/B 60 AST 21 ALT 27 TSH 6.303 VITAMIN D 25 HYDROXY S/P/B 41 CHOLESTEROL 220* TRIGLYCERIDES 128 HDL 54* LDL (CALCULATED) 140* CHOL/HDL RISK FACTOR 4 HGB A1C 6.0 07/04/2018 us Doc [facility] LABORATORY Final Result documented in this encounter Visit Diagnoses Not on filedocumented in this encounter Additional Health Concerns Infection Onset Date Last Indicated Resolved Time COVID-19 Rule Out 01/31/2020 01/31/2020 03/21/2021 4:13 PM 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
[2025-04-27 10:56] LABS: Hematocrit 42.5 % (37.0-47.0); Hemoglobin 13.9 g/dL (12.0-15.0); Immature Granulocyte Percent A 0.4 % (0-0.5); Lymphocytes Absolute Auto 1.51 K/mm3 (0.9-3.2); Mean Corpuscular HGB Conc 32.7 g/dl (32-36); Mean Corpuscular Hemoglobin 32.5 pg (26-34); Mean Corpuscular Volume 99.3 fl (80-100); Nucleated Red Blood Cells Absolute Auto 0.000 K/mm3 (0.0-0.012); Nucleated Red Blood Cells Perc 0.0 % (0.0-0.2); Platelet Count Result 162 k/mm3 (150-375); Red Blood Count 4.28 M/mm3 (4.2-5.4); White Blood Count 6.9 K/mm3 (4.5-10.0)
[2025-04-27 11:08] LABS: Add Urine Microscopic? YES; Appearance Urine Clear (Clear); Glucose Urine UA 3+ mg/dL (Negative); Leukocyte Esterase Ur Negative LEU/UL (Negative); Nitrate Urine Negative (Negative); Non Pathogenic Casts 0-2; Specific Grav Ur 1.043 (1.001-1.035)
[2025-04-27 11:10] LABS: INR 1.0; Partial Thromboplastin Time 29.7 Seconds (22.3-36.8); Prothrombin Time 13.1 Seconds (11.1-14.7)
[2025-04-27 11:14] LABS: Hemoglobin A1C 7.7 % (<5.7)
[2025-04-27 11:23] LABS: Albumin Level 4.3 g/dL (3.5-5.1); Anion Gap 5 mmol/L (4-12); Blood Urea Nitrogen 15 mg/dL (7-17); Calcium 9.8 mg/dL (8.4-10.2); Carbon Dioxide 28 mmol/L (22-30); Chloride 106 mmol/L (98-107); Estimated Glomerular Filt Rate > 60; Glucose 207 mg/dL (65-110); Potassium 4.0 mmol/L (3.4-5.0); Sodium 139 mmol/L (137-145)
[2025-04-27 12:05] LABS: MRSA (PCR) NOT DETECTED (NOT DETECTE)
== END 2025-04-27 09:37 | disposition home or self-care (01) ==
PROVIDERS: PCP Family Medicine Sports Medicine; Visit Provider Orthopaedic Surgery
DX: M17.11 Unilateral primary osteoarthritis, right knee (principal); Z01.818 Encounter for other preprocedural examination
CPT/HCPCS: 80048; 80307; 81001; 82040; 83036; 85025; 85610; 85730; 87641